=== PATIENT | male | born 1990 | race Two or more races ===

== ENCOUNTER 2023-09-01 20:11 | Emergency (ER) | payer MEDICAID ==
[~2023-09-01] VITALS: Ht 175.3 cm; Wt 136.1 kg
[2023-09-01] MEDS ORDERED: IBUP-1957 PO (22:18)
[2023-09-02 03:36] VITALS: BP 135/81; TEMP 98.1; O2SAT 98
== END 2023-09-01 23:00 | disposition home or self-care (01) ==
LOC: ER 20:18
DX: S20.212A Contusion of left front wall of thorax, initial encounter (principal); V19.9XXA Pedal cyclist (driver) (passenger) injured in unspecified traffic accident, initial encounter; Y93.89 Activity, other specified; Y92.488 Other paved roadways as the place of occurrence of the external cause; Y99.8 Other external cause status
CPT/HCPCS: 71100-TC